=== PATIENT | male | born 1945 | race Caucasian/White ===

== ENCOUNTER 2019-12-23 22:30 | Inpatient (IN) | payer MEDICARE, BC ==
[2019-12-23] MEDS ORDERED: ONDANSETRON INJ 4 MG/2 ML VIAL IV ONE (23:00)
[2019-12-23] MEDS ORDERED: fentaNYL CITRATE INJ 50 MCG/ML 2 ML AMP IV ONE (23:00)
[2019-12-23] MEDS ORDERED: SODIUM CHLORIDE 0.9% 1000ML 1,000 ML IVS ONE (23:00)
--- NOTE | 2019-12-23 23:15 | ED.PDOC ---
History of Present Illness - General Chief Complaint: General Stated Complaint: thinks he has food poisoning Time Seen by Provider: 12/23/19 22:31 Information Source: patient, RN notes reviewed, Vital Signs reviewed Exam Limitations: no limitations - History of Present Illness Initial Comments: 74 yo male with hx of gastric ulcers and AAA repair back problems comes in with 2 hours of abdominal pain n/v. denies diarrhea. states the pain is sharp/cramp. Ate some sausage when the symptoms got significantly worse thereafter. Denies fever, chest pain or shortness of breath. no black or bloody stool. no prior abdominal surgery, no hernias. last colonoscopy was 2 years ago, had polyps removed. Gets colonoscopies every 3 years. Abdominal Pain Onset Location: epigastric Review of Systems - Review of Systems Constitutional: Denies: chills, fever, malaise EENTM: Denies: blurred vision, throat pain Respiratory: Denies: cough, short of breath Cardiology: Denies: chest pain, palpitations Gastrointestinal/Abdominal: States: abdominal pain, nausea, vomiting. Denies: diarrhea Genitourinary: Denies: dysuria, frequency, hematuria Musculoskeletal: States: back pain - chronic, muscle pain - muscle spasm, chronic. Denies: joint pain Skin: Denies: rash Neurological: Denies: headache, numbness, seizure, weakness Endocrine: Denies: increased hunger, increased urine, unexplained weight gain, unexplained weight loss Hematologic/Lymphatic: Denies: easy bleeding, easy bruising Past Medical History (General) - Patient Medical History Hx Seizures: No Hx Stroke: No Hx Dementia: No Hx Asthma: No Hx of COPD: Yes Hx Cardiac Disorders: No Hx Congestive Heart Failure: No Hx Pacemaker: No Hx Hypertension: No Hx Thyroid Disease: No Hx Diabetes: No Hx Gastroesophageal Reflux: Yes Hx Renal Disease: No Hx Cancer: No Hx of HIV: No Hx MRSA: No Surgical History: other - thoracic AAA repair. - Vaccination History Hx Tetanus, Diphtheria Vaccination: Yes Hx Influenza Vaccination: Yes Hx Pneumococcal Vaccination: Yes - Social History Hx Tobacco Use: No Hx Alcohol Use: No Hx Substance Use: No Hx Substance Use Treatment: No Hx Depression: No Family Medical History - Family History Mother Family History: Unknown Physical Exam - Physical Exam General Appearance: Alert, Comfortable, No apparent distress, Well Developed, Well Groomed, Well Hydrated, Well Nourished Eyes, Ears, Nose, Throat Exam: PERRL/EOMI, normal ENT inspection, TMs normal Neck: non-tender, full range of motion, supple, normal inspection Respiratory: chest non-tender, lungs clear, normal breath sounds, no respiratory distress, no accessory muscle use Cardiovascular/Chest: normal peripheral pulses, regular rate, rhythm, no edema, no gallop, no JVD, no murmur Peripheral Pulses: 2+ Gastrointestinal/Abdominal: normal bowel sounds, soft, no organomegaly, no pulsatile mass, other - no reboudn or gaurding. Rectal Exam: deferred Back Exam: normal inspection, no CVA tenderness, no vertebral tenderness Extremity: normal range of motion, non-tender, normal inspection, no pedal edema, no calf tenderness, normal capillary refill Neurologic: no motor/sensory deficits, alert, normal mood/affect, oriented x 3 Skin Exam: normal color, warm/dry Progress - Progress Progress: 12/23/19 23:16 partial ddx: gastritis, gallstones, pancreatitis, cad, sbo 12/24/19 02:13 patient given 1 LS NS bolus, 4 mg zofran and 4 mg morphine. Patient given GI cocktail CT 1. Proximal and mid small bowel is dilated to 3.7 cm. There is a focal area of small bowel wall thickening in the right lower quadrant. Findings are consistent with small bowel obstruction. 2. There is a 7.4 x 7.4 x 4.8 cm intermediate attenuation cystic structure in the upper left quadrant which likely represents a hemorrhagic or proteinaceous cyst originating from the superior left kidney. CT shows SBO. WIll make NPO and call surgery. not actively vomiting. Surgery request NG tube. The data reviewed when caring for this patient included: nurse notes, prior records, etc. The history and assessments from nurses notes were reviewed and considered, and the patient's home medication list was also reviewed and considered. My assessment and the results of testing completed here in the ED were discussed with the patient/family. All questions were answered, and they express understanding of my assessment and the plan. patient transferred to floor in stable condition Renetta Mims DO #[id number] 12/24/19 02:17 - Results/Orders Results/Orders: 12/23/19 23:00 EKG STAT 12/23/19 23:24 Hold Metformin x 48Hrs [id number] 12/24/19 00:27 NG [Tube(s):Nasogastric,Insertion] PRN 12/24/19 01:32 ED Intent to Admit Routine Laboratory Results WBC 5.6 K/mm3 (4.8-10.8) 12/23/19 23:00 RBC 4.59 M/mm3 (4.70-6.10) L 12/23/19 23:00 Hgb 13.9 gm/dL (14.0-18.0) L 12/23/19 23:00 Hct 40.4 % (42.0-52.0) L 12/23/19 23:00 MCV 87.8 fl (80.0-94.0) 12/23/19 23:00 MCH 30.2 pg (27.0-31.0) 12/23/19 23:00 MCHC 34.4 g/dL (33.0-37.0) 12/23/19 23:00 RDW 13.3 % (11.5-14.5) 12/23/19 23:00 Plt Count 148 K/mm3 (130-400) 12/23/19 23:00 MPV 9.7 fl (7.40-10.4) 12/23/19 23:00 Absolute Neuts (auto) 4.70 K/uL (1.8-6.8) 12/23/19 23:00 Absolute Lymphs (auto) 0.50 K/uL (1.0-3.4) L 12/23/19 23:00 Absolute Monos (auto) 0.40 K/uL (0.2-0.8) 12/23/19 23:00 Absolute Eos (auto) 0.00 K/uL (0.0-0.4) 12/23/19 23:00 Absolute Basos (auto) 0.00 K/uL (0.0-0.1) 12/23/19 23:00 Neutrophils % 82.9 % (42.0-78.0) H 12/23/19 23:00 Lymphocytes % 9.4 % (20.0-50.0) L 12/23/19 23:00 Monocytes % 6.5 % (2.0-9.0) 12/23/19 23:00 Eosinophils % 0.7 % (1.0-5.0) L 12/23/19 23:00 Basophils % 0.5 % (0.0-2.0) 12/23/19 23:00 Sodium 140 mmol/L (135-145) 12/23/19 23:00 Potassium 3.6 mmol/L (3.6-5.0) 12/23/19 23:00 Chloride 98 mmol/L (101-111) L 12/23/19 23:00 Carbon Dioxide 29 mmol/L (21-31) 12/23/19 23:00 Anion Gap 16.6 (12-18) 12/23/19 23:00 BUN 11 mg/dL (7-18) 12/23/19 23:00 Creatinine 0.96 mg/dL (0.6-1.3) 12/23/19 23:00 BUN/Creatinine Ratio 11.5 (10-20) 12/23/19 23:00 Random Glucose 91 mg/dL (70-105) 12/23/19 23:00 Serum Osmolality 278.4 mOsm/L (275-295) 12/23/19 23:00 Calcium 9.4 mg/dL (8.4-10.2) 12/23/19 23:00 Total Bilirubin 1.3 mg/dL (0.2-1.0) H 12/23/19 23:00 AST 31 IU/L (10-42) 12/23/19 23:00 ALT 21 IU/L (10-60) 12/23/19 23:00 Alkaline Phosphatase 53 IU/L (42-121) 12/23/19 23:00 Troponin I < 0.02 ng/mL (0.01-0.05) 12/23/19 23:00 Serum Total Protein 7.1 gm/dL (6.4-8.2) 12/23/19 23:00 Albumin 4.3 g/dl (3.2-5.5) 12/23/19 23:00 Globulin 2.8 gm/dL (2.3-3.5) 12/23/19 23:00 Albumin/Globulin Ratio 1.5 (1.1-1.9) 12/23/19 23:00 Lipase 26 U/L (22-51) 12/23/19 23:00 Urine Color Yellow (Yellow) 12/23/19 23:20 Urine Appearance Clear (Clear) 11/07/20 23:20 Urine pH 8.5 (4.5-7.8) H 12/23/19 23:20 Ur Specific Willis 1.015 (1.005-1.030) 12/23/19 23:20 Urine Protein 30 mg/dL 12/23/19 23:20 Urine Glucose (UA) Negative mg/dL (Negative) 12/23/19 23:20 Urine Ketones 80 mg/dL (NEGATIVE) H 12/23/19 23:20 Urine Blood Negative (Negative) 12/23/19 23:20 Urine Nitrite Negative 12/23/19 23:20 Urine Bilirubin Small (NEGATIVE) H 12/23/19 23:20 Urine Urobilinogen 1.0 mg/dL (0.2-1.0) 12/23/19 23:20 Ur Leukocyte Esterase Negative (Negative) 12/23/19 23:20 Urine RBC 0 /hpf 12/23/19 23:20 Urine WBC 0 /hpf 12/23/19 23:20 Ur Epithelial Cells 0 /hpf 12/23/19 23:20 Urine Bacteria 0 12/23/19 23:20 - EKG/XRAY/CT EKG: Sinus Comments: HR 77, normal intervals, no ischemia. - Consult/PCP Time Called: 00:10 Consult/PCP: Dr. Rodriguez Consult Reason/Comments: NPO, ng tube Departure - Departure Clinical Impression: Small bowel obstruction Disposition: Admit Patient
[2019-12-23] MEDS ORDERED: ALUM & MAG HYDROX-SIMETHICONE 30 ML, LIDOCAINE VISCOUS 2% 15 ML PO ONE ×2 (23:49)
--- NOTE | 2019-12-24 00:13 | CT ---
EXAM: CT Abdomen and Pelvis With Intravenous Contrast CLINICAL HISTORY: The patient is 74 years old and is Male; epigastric pain TECHNIQUE: Axial computed tomography images of the abdomen and pelvis with intravenous contrast. Sagittal and coronal reformatted images were created and reviewed. This CT exam was performed using one or more of the following dose reduction techniques: automated exposure control, adjustment of the mA and/or kV according to patient size, and/or use of iterative reconstruction technique. COMPARISON: No relevant prior studies available. FINDINGS: Lung bases: Unremarkable. No mass. No consolidation. ABDOMEN: Liver: Unremarkable. No mass. Gallbladder and bile ducts: Unremarkable. No calcified stones. No ductal dilation. Pancreas: Unremarkable. No mass. No ductal dilation. Spleen: Unremarkable. No splenomegaly. Adrenals: Unremarkable. No mass. Kidneys and ureters: There is a 7.4 x 7.4 x 4.8 cm intermediate attenuation cystic structure in the upper left quadrant which likely represents a hemorrhagic or proteinaceous cyst originating from the superior left kidney. There is bilateral perinephric stranding. There is an 8 mm simple cyst in the upper right kidney; no follow-up required. No hydronephrosis. Stomach and bowel: Proximal and mid small bowel is dilated to 3.7 cm. There is a focal area of small bowel wall thickening in the right lower quadrant. The terminal ileum is collapsed. There are air-fluid levels in the small bowel. PELVIS: Appendix: No findings to suggest acute appendicitis. Bladder: Unremarkable. No mass. Reproductive: Unremarkable as visualized. ABDOMEN and PELVIS: Intraperitoneal space: Unremarkable. No free air. No significant fluid collection. Bones/joints: No acute fracture. No dislocation. There are median sternotomy wires. Soft tissues: Unremarkable. Vasculature: Scattered atherosclerotic vascular calcifications. No abdominal aortic aneurysm. Lymph nodes: Unremarkable. No enlarged lymph nodes. IMPRESSION: 1. Proximal and mid small bowel is dilated to 3.7 cm. There is a focal area of small bowel wall thickening in the right lower quadrant. Findings are consistent with small bowel obstruction. 2. There is a 7.4 x 7.4 x 4.8 cm intermediate attenuation cystic structure in the upper left quadrant which likely represents a hemorrhagic or proteinaceous cyst originating from the superior left kidney. Electronically signed by: Camilo Martin MD 12/24/2019 12:11 AM [facility]
[2019-12-24] MEDS ORDERED: diphenhydrAMINE HCL 50 MG/ML VIAL IV ONE (00:41)
[2019-12-24] MEDS ORDERED: MORPHINE SULFATE INJ 10 MG/ML VIAL IV ONE (01:10)
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
--- NOTE | 2019-12-24 02:29 | RAD ---
EXAM DESCRIPTION: Chest,1 View CLINICAL HISTORY: 74 years Male, NG-placement COMPARISON: None TECHNIQUE: Single AP chest radiograph. FINDINGS: Enteric tube courses below the diaphragm. The distal tip is not seen. Cardiomegaly. Right hemidiaphragm elevation. Bibasilar atelectasis. Left lung is clear. No pneumothorax or pleural effusion. Intact sternotomy wires. IMPRESSION: 1. Enteric tube courses below the diaphragm. 2. Elevated right hemidiaphragm with adjacent atelectasis. 3. Cardiomegaly. Electronically signed by: Bruno Reilly MD 12/24/2019 2:27 AM [facility]
[2019-12-24] MEDS ORDERED: DEXTROSE 50% 25 GM/50 ML SYG IV PRN (02:52)
[2019-12-24] MEDS ORDERED: SODIUM CHLORIDE 0.9% (FLUSH) 10 ML SYG IV PRN (02:52)
[2019-12-24] MEDS ORDERED: GLUCAGON INJ 1 MG VIAL SUBCU PRN (02:52)
[2019-12-24] MEDS ORDERED: ONDANSETRON INJ 4 MG/2 ML VIAL IV PRN (02:52)
[2019-12-24] MEDS: KCL 20MEQ/D5 1/2NS 1,000 ML IVS PRN ×2 (03:43→15:15)
[2019-12-24] MEDS: IV SET AND CAP CHANGE INJ INJ SCH (04:02)
[2019-12-24] MEDS ORDERED: BENZOCAINE-MENTH LOZ (CEPACOL) 1 EA LOZ MT PRN (05:50)
[2019-12-24] MEDS: MORPHINE SULFATE INJ 10 MG/ML VIAL IV PRN ×2 (06:00→09:40)
[2019-12-24] MEDS ORDERED: METOPROLOL TARTRATE INJ 5 MG/5 ML VIAL IV ONE (10:01)
[2019-12-24] MEDS ORDERED: NEBIVOLOL 2.5 MG TAB ONE (10:26)
[2019-12-24] MEDS: Wellbutrin XL 150 MG TAB PO SCH (10:55)
[2019-12-24] MEDS: ESCITALOPRAM 10 MG TAB PO SCH (10:55)
[2019-12-24] MEDS: INSULIN LISPRO 100 UNITS/ML PEN SUBCU SCH ×3 (11:29→18:25)
[2019-12-24] MEDS: NON-FORMULARY MEDICATION 1 EA MIS (Nebivolol Hcl [Bystolic] 10 MG) PO SCH (11:31)
--- NOTE | 2019-12-24 11:45 | RAD ---
EXAM DESCRIPTION: Abdomen two views: CLINICAL HISTORY: Abdominal pain. COMPARISON STUDY: CT abdomen December 23, 2019. TECHNIQUE: AP supine and upright views of the abdomen are obtained. FINDINGS: The supine and upright abdominal radiographs show a non- obstructive bowel gas pattern. Nasogastric tube is present with its tip barely in the stomach. It should be further advanced for optimal placement. No pneumoperitoneum or mass effect. No evidence of abnormal air-fluid levels.No evidence of calculi or calcifications are noted. There is no evidence of hepatosplenomegaly. Eventration of the right hemidiaphragm is noted. Degenerative changes are seen in the lumbar spine.. IMPRESSION: Nonspecific bowel gas pattern. NG tube needs to be advanced for optimal placement. Electronically signed by: Radha Graves MD 12/24/2019 11:43 AM [facility]
[2019-12-24] MEDS ORDERED: cloNIDine HCL 0.1 MG TAB PO ONE (13:33)
[2019-12-24] MEDS ORDERED: ACETAMINOPHEN IV 1000MG 1,000 MG in PREMIX BOTTLE 1 BOTTLE IVPB ONE (13:48)
[2019-12-24] MEDS: ALPRAZolam 0.5 MG TAB PO SCH ×2 (13:49→20:28)
[2019-12-24] MEDS ORDERED: ACETAMINOPHEN IV 1000MG 100 ML ONE (14:03)
[2019-12-24] MEDS ORDERED: SODIUM CHLORIDE 0.9% (FLUSH) 10 ML SYG ONE (19:40)
[2019-12-24] MEDS: GABAPENTIN 400 MG CAP PO SCH (20:27)
[2019-12-24] MEDS: PANTOPRAZOLE SODIUM IV 40 MG VIAL IV SCH (20:29)
[2019-12-24] MEDS: traZODone HCL 50 MG TAB PO SCH (20:29)
[2019-12-24] MEDS: TAMSULOSIN 0.4 MG CAP PO SCH (20:29)
[2019-12-24] MEDS ORDERED: KCL 20MEQ/D5 1/2NS 1,000 ML IVS ONE (22:28)
[2019-12-25] MEDS: INSULIN LISPRO 100 UNITS/ML PEN SUBCU SCH ×4 (00:48→20:02)
[2019-12-25] MEDS: KCL 20MEQ/D5 1/2NS 1,000 ML IVS PRN ×3 (01:20→17:58)
[2019-12-25] MEDS ORDERED: MORPHINE SULFATE INJ 10 MG/ML VIAL ONE (06:05)
[2019-12-25] MEDS: MORPHINE SULFATE INJ 10 MG/ML VIAL IV PRN ×4 (06:07→19:33)
--- NOTE | 2019-12-25 07:12 | RAD ---
EXAM: XR Abdomen, 2 Views CLINICAL HISTORY: The patient is 74 years old and is Male; SBO TECHNIQUE: Two views total of the abdomen/pelvis including upright view of the abdomen. COMPARISON: December 24, 2019 11:32 AM. FINDINGS: Lower thorax: Visualized lung bases are clear. Intraperitoneal space: No free air. Gastrointestinal tract: Borderline dilated central small bowel loops, nonspecific. Bones/joints: No acute fracture visualized. Degenerative changes in the spine. Tubes, lines and devices: NG tube in the proximal stomach. IMPRESSION: 1. NG tube in the proximal stomach. 2. Borderline dilated central small bowel loops, nonspecific. Electronically signed by: Sadie Short MD 12/25/2019 7:11 AM [facility] [facility]
[2019-12-25] MEDS ORDERED: NEBIVOLOL 2.5 MG TAB ONE (07:18)
[2019-12-25] MEDS ORDERED: ALPRAZolam 0.5 MG TAB ONE (07:18)
[2019-12-25] MEDS ORDERED: ESCITALOPRAM 10 MG TAB ONE (07:19)
[2019-12-25] MEDS ORDERED: Wellbutrin XL 150 MG TAB PO ONE (07:19)
[2019-12-25] MEDS ORDERED: NON-FORMULARY MEDICATION 1 EA MIS (Fluticasone Propionate (Nasal) [Fluticasone Propionate] NAS SCH (09:00)
[2019-12-25] MEDS: ALPRAZolam 0.5 MG TAB PO SCH ×3 (09:11→20:57)
[2019-12-25] MEDS: ESCITALOPRAM 10 MG TAB PO SCH (09:12)
[2019-12-25] MEDS: Wellbutrin XL 150 MG TAB PO SCH (09:12)
[2019-12-25] MEDS: NON-FORMULARY MEDICATION 1 EA MIS (Nebivolol Hcl [Bystolic] 10 MG) PO SCH (09:13)
--- NOTE | 2019-12-25 15:00 | PN ---
SUPERVISING PHYSICIAN: Trever Tavares MD DATE: 12/25/19 SUBJECTIVE: The patient reports he had a small bowel movement this morning. He is still having some abdominal pain and some soreness. His NG tube remains in place. He is still NPO. OBJECTIVE: VITAL SIGNS: Temperature 98.2, pulse 64, blood pressure 138/80, respirations 16, saturation 96%on room air. GENERAL: The patient is resting comfortably. NG tube is in place which is causing a little bit of anxiety, but he is otherwise okay. CHEST: Lungs are clear to auscultation. HEART: Regular rate and rhythm. ABDOMEN: Soft with some tenderness to the mid abdominal region. No rebound tenderness, no peritoneal signs. Bowel sounds active. EXTREMITIES: No cyanosis, clubbing or edema. NEUROLOGIC: Alert and oriented times three. LABORATORY: White count 4,900. Hemoglobin 12.7 and hematocrit 37.2, stable. Platelet count 121,000. Differential does show a resolved left shift. Chemistries show normal electrolytes. Calcium 8.2. Blood sugars range between 118 and 130. Liver functions were all within normal limits. RADIOLOGY: Repeat abdominal x-ray this morning per radiologic interpretation showed NG tube in the proximal stomach with borderline dilated central small bowel loops, nonspecific. ASSESSMENT: 1. Small bowel obstruction, being followed by Dr. Rodriguez. 2. Left renal cyst, chronic and followed by his primary care physician. 3. History of gastroesophageal reflux disease. 4. History of West Nile virus infection. 5. Chronic back pain. 6. Hypertension. 7. General anxiety disorder, on Xanax and BuSpar and antidepressants. PLAN: We will continue to followup the patient with Dr. Rodriguez's direction in regards to the NG tube and starting on a diet versus if he is going have to have surgical intervention as far as the small bowel obstruction. I resumed his home medications. He is still not on Lovenox. We are awaiting further consultation with Dr. Rodriguez. He remains on IV fluids and antiemetics and morphine for any pain. Until the patient can transition to outpatient management, we will continue to monitor and treat as needed. #[id number] [facility]
[2019-12-25] MEDS: TAMSULOSIN 0.4 MG CAP PO SCH (17:04)
[2019-12-25] MEDS: GABAPENTIN 400 MG CAP PO SCH (20:57)
[2019-12-25] MEDS: traZODone HCL 50 MG TAB PO SCH (20:57)
[2019-12-25] MEDS: PANTOPRAZOLE SODIUM IV 40 MG VIAL IV SCH (20:58)
[2019-12-26] MEDS: INSULIN LISPRO 100 UNITS/ML PEN SUBCU SCH ×4 (00:31→18:17)
[2019-12-26] MEDS: KCL 20MEQ/D5 1/2NS 1,000 ML IVS PRN ×3 (01:24→20:12)
[2019-12-26] MEDS: MORPHINE SULFATE INJ 10 MG/ML VIAL IV PRN ×3 (06:19→20:14)
--- NOTE | 2019-12-26 08:57 | RAD ---
EXAM DESCRIPTION: Abdomen Flat Upright CLINICAL HISTORY: 74 years Male, SBO COMPARISON: December 25, 2019 FINDINGS: Supine and erect films of the abdomen demonstrate clear left lung base with no free abdominal air on the upright view. Hazy density right lung base suggest developing effusion and/or infiltrate or atelectasis. No free abdominal air seen. NG tube is coiled within the decompressed gastric fundus. Slightly prominent bowel loops persist in the central abdomen on the supine view. This is unchanged from prior study and consistent with residual ileus or mild partial obstruction. Evacuation of the stool-filled nondilated left colon is not apparent. Small amount of gas remains within the rectum, unchanged. IMPRESSION: 1. Stable appearance of the abdomen with minimally prominent proximal small bowel loop suggesting residual ileus or minimal partial obstruction. 2. Hazy density right lung base suggesting layering pleural effusion and/or atelectasis, more apparent than yesterday's study. Electronically signed by: Trever Vásquez MD 12/26/2019 8:[address] [facility]
[2019-12-26] MEDS: NEBIVOLOL 2.5 MG TAB PO SCH (09:17)
[2019-12-26] MEDS: Wellbutrin XL 150 MG TAB PO SCH (09:18)
[2019-12-26] MEDS: ESCITALOPRAM 10 MG TAB PO SCH (09:18)
[2019-12-26] MEDS: ALPRAZolam 0.5 MG TAB PO SCH ×3 (09:18→20:15)
--- NOTE | 2019-12-26 14:20 | PN ---
SUPERVISING PHYSICIAN: Trever Tavares MD DATE: 12/26/19 SUBJECTIVE: The patient is resting comfortably. He says there is not much change from yesterday although his pain may be a little bit less. He has had a little bit of a bowel movement. OBJECTIVE: VITAL SIGNS: Temperature 98.5, pulse 57, blood pressure 168/81, respirations 16, saturation 96% on room air. GENERAL: The patient is resting comfortably. NG tube is in place. He is alert and oriented. CHEST: Lungs are clear to auscultation. HEART: Regular rate and rhythm. ABDOMEN: Soft with some tenderness continued in the mid abdominal region. No rebound tenderness, no peritoneal signs. Bowel sounds active. NEUROLOGIC: Alert and oriented times three. LABORATORY: White count 4,900. Hemoglobin 12.7 and hematocrit 37.2. Platelet count 121,000. Differential without a left shift. Chemistries yesterday showed normal electrolytes. Blood sugars range between 107 and 126. RADIOLOGY: Repeat abdominal x-ray this morning per radiologic interpretation showed stable appearance of the abdomen with minimal prominent proximal small bowel loops suggesting residual ileus or minimal partial obstruction. Hazy density within the right lung suggesting layering pleural effusion or atelectasis, more prominent that yesterday's study. ASSESSMENT: 1. Small bowel obstruction, being followed by Dr. Rodriguez. 2. Left renal cyst, chronic and followed by his primary care physician. 3. History of gastroesophageal reflux disease. 4. History of West Nile virus infection. 5. Chronic back pain. 6. Hypertension. 7. General anxiety disorder, on Xanax and BuSpar and antidepressants. PLAN: We will continue to followup the patient with Dr. Rodriguez. I encouraged him to do some deep breathing exercises to prevent atelectasis and complications of such. We will follow his blood pressure and monitor and treat as needed. We will defer surgical management and further management in regards to the small bowel obstruction to Dr. Rodriguez. The patient remains stable at this time. Hopefully we can transition to outpatient management in the next 24 to 48 hours. Until then, we will continue to monitor and treat as needed. He remains on IV fluids and he is NPO. #[id number] [facility]
--- NOTE | 2019-12-26 14:33 | CONS ---
DATE OF CONSULTATION: 12/24/19 REASON FOR CONSULTATION: Small bowel obstruction. HISTORY OF PRESENT ILLNESS: This is a healthy-appearing 74-year-old man who was hunting. He is from the [place] area. He had been having some intermittent abdominal aches for probably up to a couple of weeks, but in the last couple of days, it got much more severe. He was out in the field and had significant abdominal pain and came here to the Emergency Department. He complained of the abdominal pain which is mid abdomen radiating throughout. It is very sharp and crampy. He had nausea and vomiting. He has had normal stool. He denies any black or bloody stool. No hematemesis. He denied any fever or chills. No history of similar symptoms. PAST MEDICAL HISTORY: 1. Gastroesophageal reflux disease. 2. Hypertension. PAST SURGICAL HISTORY: 1. Thoracic aneurysm repair. No abdominal surgery. MEDICATIONS: Please see list. FAMILY HISTORY: Father had a stroke. Mother had lymphatic cancer. SOCIAL HISTORY: The patient lives in [place]. He denies any alcohol. He quit tobacco in 2001. No drug use. REVIEW OF SYSTEMS: HEENT: No headache, visual changes, sore throat. RESPIRATORY: No cough or wheeze. CARDIOVASCULAR: No chest pain or palpitations. GASTROINTESTINAL: As above. GENITOURINARY: No frequency, dysuria or hematuria. EXTREMITIES: He has some chronic back pain, but denies any new extremity aches or pains. NEUROLOGIC: No complaints. PHYSICAL EXAMINATION: VITAL SIGNS: On arrival, he was afebrile. Hypertensive at 180/90, pulse in the 80s, saturation 96% on room air. GENERAL: The patient is conscious, alert and well-oriented, in no distress. He is slightly concerned about his blood pressure. He has an NG tube in place that has light bilious fluid. HEENT: Normocephalic, atraumatic. Pupils equal and reactive to light. Sclerae anicteric. Oral mucosa is moist. NECK: Supple. No adenopathy, jugular venous distention or thyromegaly. CHEST: Clear and equal bilaterally. No wheezing or crackles. HEART: Regular rate and rhythm. No murmurs, rubs or gallops. ABDOMEN: Mildly distended. Soft. Slightly tender to deep palpation. No rebound, no guarding. No evidence of hernias. No CVA tenderness. He has no adenopathy. EXTREMITIES: No cyanosis, clubbing or edema. NEUROLOGIC: Alert and oriented x3. Cranial nerves grossly intact. LABORATORY: White count on admission 5.6, hematocrit 40, platelet count 148. BMP was normal, slightly elevated bilirubin. RADIOLOGY: Of significance, abdominal CT scan which I reviewed shows moderately dilated proximal bowel with some decompressed distal bowel, approximately 1/3 of the distal small bowel. No obvious masses. No evidence of internal hernia. The office read is proximal mid small bowel obstruction. He also has a cystic lesion 7.4 cm on the left kidney. IMPRESSION: 1. Partial small bowel obstruction in a man without history of abdominal surgery. 2. Known cyst in the kidney. PLAN: He will be admitted and observed and placed on NG suction. #[id number] [facility]
[2019-12-26] MEDS: TAMSULOSIN 0.4 MG CAP PO SCH (17:09)
[2019-12-26] MEDS: traZODone HCL 50 MG TAB PO SCH (20:15)
[2019-12-26] MEDS: PANTOPRAZOLE SODIUM IV 40 MG VIAL IV SCH (20:16)
[2019-12-26] MEDS: GABAPENTIN 400 MG CAP PO SCH (20:17)
--- NOTE | 2019-12-26 21:35 | RAD ---
EXAM DESCRIPTION: Small Bowel Series CLINICAL HISTORY: rule out SBO COMPARISON: [None] TECHNIQUE: Patient ingested 16 ounces of water-soluble Gastrografin oral contrast. Single AP supine radiograph of the abdomen and pelvis obtained one and a half hours after contrast ingestion. FINDINGS: Oral contrast is noted in the terminal ileum, cecum, ascending colon, descending colon, and rectosigmoid. No distended gas-filled segments of small bowel. Included segments of colon not distended. IMPRESSION: Gastrografin small bowel series showing no small bowel obstruction. The findings were discussed directly by Dr. Huddleston during phone conversation with Dr. Nitesh Rodriguez at approximately 1715 hours on December 26, 2019. Electronically signed by: Herman Huddleston MD 12/26/2019 9:34 PM [employer]
[2019-12-27] MEDS: KCL 20MEQ/D5 1/2NS 1,000 ML IVS PRN (03:11)
[2019-12-27] MEDS: IV SET AND CAP CHANGE INJ INJ SCH (04:52)
[2019-12-27] MEDS: INSULIN LISPRO 100 UNITS/ML PEN SUBCU SCH ×2 (06:21)
[2019-12-27] MEDS: ESCITALOPRAM 10 MG TAB PO SCH (09:11)
[2019-12-27] MEDS: ALPRAZolam 0.5 MG TAB PO SCH (09:11)
[2019-12-27] MEDS: Wellbutrin XL 150 MG TAB PO SCH (09:11)
[2019-12-27] MEDS: NEBIVOLOL 2.5 MG TAB PO SCH (09:11)
[2019-12-27] MEDS ORDERED: HYDROcodone 7.5MG/APAP 325MG 1 EA TAB PO PRN (09:14)
[2019-12-27 15:55] VITALS: BP 169/72; TEMP 98.1; O2SAT 97
--- NOTE | 2019-12-28 09:00 | DS ---
SUPERVISING PHYSICIAN: Trever Tavares MD DISCHARGE DIAGNOSIS: 1. Small bowel obstruction, being followed by Dr. Rodriguez. 2. Left renal cyst, chronic and followed by his primary care physician in [place]. 3. History of gastroesophageal reflux disease. 4. History of West Nile virus infection. 5. Chronic back pain. 6. Hypertension. 7. General anxiety disorder, on Xanax and BuSpar. HISTORY OF PRESENT ILLNESS: This is a 74-year-old male patient who resides in [place], [place]. He was here in [facility] for . He had eaten some sausage at a local restaurant and started having some nausea and vomiting with associated abdominal pains. He denied any fever or chest pain, shortness of breath, but he felt like he had gotten food poisoning. He does have a history of gastric ulcers and thoracic aortic repair, hypertension and anxiety. CT of the abdomen revealed a proximal mid small bowel dilation with some wall thickening in the right lower quadrant consistent with small bowel obstruction. There was also note of a 7 x 7 x 4 cm cystic structure in the left upper quadrant on the left kidney. That is presently being followed by his primary care physician. An NG tube was placed and Dr. Rodriguez was consulted. He was admitted to the hospital for further treatment and evaluation of the small bowel obstruction. His laboratory studies were unremarkable. Electrolytes were within normal limits, bilirubin was slightly elevated at 1.3. Liver functions were within normal limits. White count was normal at 5.6, he had a slight left shift and normal platelet count. Urinalysis was also unremarkable. Vital signs showed he was hemodynamically stable and afebrile. He was admitted to the hospital in stable condition. HOSPITAL COURSE: The patient was placed on bowel rest with no medications. His NG was at intermittent low wall suction. He had morphine for pain control as well as IV fluids. His home medications were reviewed. He was on DVT prophylaxis. Dr. Rodriguez saw the patient in consult and felt the Lovenox could be discontinued if surgery was needed. He had antiemetics with Zofran and Phenergan. His pain diminished. He actually had a small bowel movement on the second morning. Dr. Rodriguez felt that he could be treated conservatively at this time since he had improved. After he completely stabilized and had no further pain, his diet was advanced. His home medications were re-started. He had a small bowel x-ray done the morning prior to his discharge and Gastrografin small bowel series showed no small bowel obstruction. Dr. Huddleston, the radiologist, and Dr. Rodriguez discussed his case. Since he has tolerated his diet and his vital signs and labs have remained stable, he will be discharged home today in stable condition. LABORATORY: WBCs have been stable at 4.9 with a hemoglobin of 12.7, hematocrit 37.2. Electrolytes are within normal limits. Blood sugar slightly elevated at 118. He will be discharged home today in stable condition with close followup with his primary care physician. DISCHARGE PLAN: The patient will be discharged home in stable condition. He is to advance his diet as instructed by Dr. Rodriguez and increase his activity as tolerated. He is to followup with his primary care physician in the next week. He is to return to the hospital or followup with his primary care physician for any problems or complications. DISCHARGE MEDICATIONS: 1. Alprazolam. 2. Gabapentin. 3. Trazodone. 4. Nebivolol. 5. Omeprazole. 6. Hydrocodone. 7. Lexapro. 8. Tamsulosin. 9. Simvastatin. 10. Wellbutrin. 11. Fluticasone. #[id number] [facility]
== END 2019-12-27 13:10 | disposition home or self-care (01) | DRG 390 ==
LOC: ER 22:30 → MS 12-24 02:02 → OBSVTOIN 12-24 02:02
PROVIDERS: ADMIT Nurse Practitioner Family; ATTEND Nurse Practitioner Acute Care
PROC: BW211ZZ Computerized Tomography (CT Scan) of Abdomen and Pelvis using Low Osmolar Contrast (ICD-10-PCS; principal; 2019-12-23)
DX: K56.600 Partial intestinal obstruction, unspecified as to cause (principal); K21.9 Gastro-esophageal reflux disease without esophagitis; I10 Essential (primary) hypertension; G89.29 Other chronic pain; M54.9 Dorsalgia, unspecified; F41.1 Generalized anxiety disorder; Z88.0 Allergy status to penicillin; Z98.890 Other specified postprocedural states; Z87.891 Personal history of nicotine dependence; Z86.19 Personal history of other infectious and parasitic diseases; Z87.11 Personal history of peptic ulcer disease; Z79.899 Other long term (current) drug therapy